=== PATIENT | male | born 1970 | race Caucasian/White ===

== ENCOUNTER 2022-08-27 21:55 | Emergency (ER) | payer SELFPAY ==
[~2022-08-27] VITALS: Ht 172.7 cm; Wt 77.1 kg
--- NOTE | 2022-08-27 22:51 | NUR ---
After being triaged, patient was placed back in waiting room.
--- NOTE | 2022-08-27 22:55 | NUR ---
Patient while in the waiting room stated "I changed my mind, my nose stopped bleed and I don't want to see the doctor anymore." Patient was encourage to stay to be medically eval by ERMD but patient left with . Patient was triaged but not seen by ERMD.
== END 2022-08-27 22:55 | disposition left against medical advice (07) ==
LOC: ER 21:59
DX: Z53.21 Procedure and treatment not carried out due to patient leaving prior to being seen by health care provider (principal)

== ENCOUNTER 2022-09-08 21:34 | Emergency (ER) | payer MEDICAID ==
--- NOTE | 2022-09-08 23:05 | NUR ---
Pt not in waiting room.
== END 2022-09-09 00:02 | disposition left against medical advice (07) ==
LOC: ER 21:37
DX: Z53.21 Procedure and treatment not carried out due to patient leaving prior to being seen by health care provider (principal)